=== PATIENT | female | born 1955 | race Caucasian/White ===

== ENCOUNTER 2018-02-03 19:13 | Inpatient (IN) | payer OTHER ==
[~2018-02-03 19:13] MED LIST: ISOVUE-370 76%-LOCM 1 ML ONE
[2018-02-03 19:44] LABS: #Basophils 0.1 thou/uL (0.0-0.2); #Eosinphils 0.4 thou/uL (0.0-0.7); #Lymphocytes 3.3 thou/uL (1.20-3.40); #Monocytes 0.9 thou/uL (0.11-0.59); #Neutrophils 10.7 thou/uL (1.40-6.50); %Basophils 0.6 % (0.0-1.0); %Eosinophils 2.4 % (0.0-10.0); %Lymphocytes 21.6 % (21.0-51.0); %Monocytes 5.8 % (0.0-10.0); %Neutrophils 69.5 % (42.0-75.0); Hemoglobin 15.6 g/dL (12.0-16.0); Mean Corpuscular Hemoglobin 32.3 pg (27.0-31.0); Mean Corpuscular Volume 94.9 fL (78.0-98.0); Mean Platelet Volume 6.6 fL (7.4-10.4); Platelet Count 291 thou/uL (130-400); RBC Distribution Width 11.9 % (11.5-14.5); Red Blood Cell (RBC) Count 4.82 mill/uL (4.20-5.40); White Blood Cell (WBC) Count 15.3 thou/uL (4.8-10.8)
[2018-02-03] MEDS ORDERED: Ondansetron ODT 4 MG TAB ONE (19:47)
[2018-02-03] MEDS ORDERED: Ketorolac Tromethamine 30 MG/ML VIAL ONE (19:47)
[2018-02-03] MEDS ORDERED: Dicyclomine 20 MG TAB ONE (19:47)
[2018-02-03 19:50] LABS: Bilirubin Negative (Negative); Blood, Urine Large (Negative); Clarity CLOUDY (Clear); Glucose, Urine (Dipstick) Negative (Negative); Leukocyte Trace (Negative); Nitrite Negative (Negative); Protein, Urine (Dipstick) Trace mg/dL (Neg-Trace); Urobilinogen 0.2 mg/dL (0.2-1.0)
[2018-02-03 19:52] LABS: Bacteria/HPF None Seen HPF (None Seen); Pathc Cast-AUWi Flag 1.16 (0-2.49); RBC/HPF 21-50 HPF (0-3); WBC/HPF 21-50 HPF (0-3)
[2018-02-03 20:03] LABS: ALT (SGPT) 14 U/L (8-55); AST (SGOT) 17 U/L (5-34); Albumin 4.3 g/dL (3.4-4.8); Alkaline Phosphatase 102 U/L (40-150); Anion Gap 15 mmol/L (10-20); BUN (Urea Nitrogen) 19 mg/dL (9.8-20.1); Bilirubin, Total 0.3 mg/dL (0.2-1.2); Calc. Creatinine Clearance 0 mL/min (70-130); Calcium 9.8 mg/dL (7.8-10.44); Carbon Dioxide 23 mmol/L (23-31); Chloride 105 mmol/L (98-107); Estimated GFR-MDRD 54; Globulin 3.1 g/dL (2.4-3.5); Glucose 151 mg/dL (80-115); Potassium 3.4 mmol/L (3.5-5.1); Protein, Total 7.4 g/dL (6.0-8.3); Sodium 140 mmol/L (136-145)
[2018-02-03 20:04] LABS: Crystals/HPF 1+ CA OXALATE HPF (Negative); Hyaline Casts/LPF NONE SEEN LPF (0-3 Hyaline)
--- NOTE | 2018-02-03 20:58 | CT ---
CT OF THE ABDOMEN AND PELVIS WITH CONTRAST: 02/03/18 COMPARISON: 12/02/16. HISTORY: Low back pain and lower abdominal pain for two hours. This pain is crampy in nature and extends to he r lower left back. TECHNIQUE: Multiple contiguous axial images were obtained in a CT of the abdomen and pelvis with contrast. Coron al reformats were performed. FINDINGS: The liver, gallbladder, kidneys, adrenal glands, spleen, and pancreas are unremarkable. No free air, free fluid, or stranding changes are seen in the abdomen or pelvis. The patient is status post hyster ectomy. The colon is decompressed. There are a few minimally enlarged loops of small bowel containing a feces sign in the pelvis measuring up to 2.1 cm in diameter. There is no transition point from the se minimally enlarged loops of bowel to more decompressed bowel loops. No abdominal or pelvic lymphad enopathy are seen. Atherosclerotic calcifications are seen in the aorta. Degenerative changes are seen in the spine. The visualized inferior thorax and abdominal wall soft ti ssues are unremarkable. IMPRESSION: There is possibly mild enlargement of a few small bowel loops in the pelvis with a small bowel feces sign. This could be secondary to an ileus or partial small bowel obstruction. POS: MARIEL
[2018-02-03] MEDS ORDERED: cefTRIAXone\\ROCEPHIN 2 GM VIAL ONE (21:30)
[2018-02-03] MEDS ORDERED: Ondansetron HCl/PF 4 MG/2 ML Vial IVP PRN (23:02)
[2018-02-03] MEDS ORDERED: Ondansetron ODT 4 MG TAB SL PRN (23:02)
[2018-02-03] MEDS ORDERED: Acetaminophen 325 MG TAB PO PRN (23:02)
[2018-02-04] MEDS: Sodium Chloride 0.9% 1,000 ML IV SCH ×2 (01:02→09:46)
[2018-02-04 04:03] VITALS: BMI 22.9
[2018-02-04] MEDS ORDERED: Sodium Chloride 0.9% 1,000 ML IV SCH (10:15)
[2018-02-04] MEDS ORDERED: Ondansetron HCl/PF 4 MG/2 ML Vial IVP PRN (10:16)
--- NOTE | 2018-02-04 11:28 | RAD ---
SMALL BOWEL FOLLOW THROUGH EXAM: CLINICAL HISTORY: Small bowel obstruction. FINDINGS: Radiopaque contrast is administered with subsequent radiographic imaging. Imaging performed for 30 m inutes. By 30 minutes of imaging, there is contrast opacification of the colon. The small bowel is contrast-opacified and does not reveal pathologic dilatation. Mild ectasia does involve proximal sma ll bowel. There is mild to moderate retained fecal material throughout the colon. IMPRESSION: Contrast traverses the small bowel into the colon by 30 minutes of imaging. There is no radiographic evidence of high-grade bowel obstruction. POS: MARIEL
[2018-02-04] MEDS ORDERED: PROVENTIL INHALER 6.7 G (200 INHALATIONS) INH PRN ×2 (11:46)
[2018-02-04 12:00] VITALS: BP 137/72; TEMP 98.3
[2018-02-04] MEDS ORDERED: Acetaminophen 1,000 MG in Premix Bag 1 BAG IVPB SCH (12:00)
[2018-02-04] MEDS ORDERED: GASTROGRAFIN 30 ML BOT ONE (12:58)
[2018-02-04] MEDS ORDERED: MD-Gastroview 120 ML BOT ONE (12:58)
[2018-02-04] MEDS ORDERED: Ketorolac Tromethamine 30 MG/ML VIAL IVP SCH (16:00)
--- NOTE | 2018-02-04 16:53 | HP ---
HISTORY OF PRESENT ILLNESS: A 62-year-old female who developed onset of pain yesterday, nausea and v omiting. Last bowel movement was 2 days ago, last flatus two days ago. She presented to the emergen cy room and was evaluated, had a CAT scan of the abdomen and pelvis demonstrating some dilated loops of small bowel proximally, read as possibly mild enlargement of few small bowel loops in the pelvis w ith small bowel feces sign that could be secondary to ileus or bowel obstruction. The patient's CAT scan of the abdomen and pelvis otherwise unremarkable. I was called early this morning stating that she had a bowel obstruction, but did not have an NG tube if she does not have any more nausea or vomi ting, but felt she should be observed for her dehydration. White count 15, hemoglobin 15. Basic met abolic profile normal. I know the patient from the past when I saw her for suspected biliary disease, but it was determined that she did not need an operation if she did not have any significant biliary disease and she was di scharged home without subsequent symptoms. ALLERGIES: None. TOBACCO: One half pack per day. ALCOHOL: Occasional wine. PAST SURGICAL HISTORY: Total hysterectomy, bilateral salpingo-oophorectomy in her 20s for endometrio sis. PAST MEDICAL HISTORY: Noncontributory. REVIEW OF SYSTEMS: Noncontributory. FAMILY HISTORY: Noncontributory. PHYSICAL EXAMINATION: VITAL SIGNS: 5 feet 5 inches, 138 pounds, 23 BMI, 98.3, 84, 137/72. LUNGS: Clear to auscultation. CARDIAC: Regular rate and rhythm without murmur or gallop. ABDOMEN: Soft, nontender, no masses. EXTREMITIES: Unremarkable. LABORATORIES: As noted above. CAT scan as noted above. ASSESSMENT AND PLAN: The patient was admitted overnight and she underwent a small bowel follow throu gh with small bowel contrast, transitioned into the colon within 30 minutes. She has had multiple nicky wel movements. She has tolerated full liquids. By the time I had seen her, she he wants to go home. At this point, it is more likely she had a gastroenteritis since she is being discharged home. Cristy drake did have a small bowel feces sign, which could be consistent with constipation or small bowel stasi s, but she tolerated diet. Bowel function is good and she will be discharged home. Instruction is t o take MiraLax daily.
[2018-02-05] MEDS ORDERED: Multivit, Therapeutic 1 TAB PO SCH (09:00)
== END 2018-02-04 16:00 | disposition home or self-care (01) | DRG 392 ==
LOC: ERS 19:13 → SURG B 21:45
PROVIDERS: ADMIT Specialist; ATTEND Specialist
DX: K52.9 Noninfective gastroenteritis and colitis, unspecified (principal); K59.00 Constipation, unspecified; F17.210 Nicotine dependence, cigarettes, uncomplicated
CPT/HCPCS: 74177; 74250; 80053; 81003; 81015; 85025; 87086; 96361; 96365; 96375; J0131; J0696; J1885; J2405; Q0162

== ENCOUNTER 2019-12-11 15:12 | Inpatient (IN) | payer MEDICARE ==
[~2019-12-11 15:12] MED LIST changes: +Amiodarone 150 MG/3 ML VIAL ONE; -ISOVUE-370 76%-LOCM 1 ML ONE; +Iopamidol 370 76% 100 ML VIAL ONE; +Iopamidol 370 76% 50 ML VIAL FS ONE; +Magnesium 5 GM/10 ML Abboject SYRINGE ONE
[2019-12-11] MEDS ORDERED: Heparin 10,000 UNITS/1 ML VIAL ONE (15:17)
[2019-12-11] MEDS ORDERED: Magnesium 2 GM/50 ML BAG (IN WATER) ONE (15:21)
[2019-12-11] MEDS ORDERED: Nitroglycerin 100MG/250ML BOT 0 ML ONE (15:21)
[2019-12-11] MEDS ORDERED: Heparin 1,000 UNITS/ML VIAL ONE (15:25)
[2019-12-11] MEDS ORDERED: Amiodarone 150 MG, Admixture Fee 1 EACH in Dextrose 5% in Water 100 ML IVPB SCH (15:30)
[2019-12-11] MEDS ORDERED: Amiodarone 450 MG, Admixture Fee 1 EACH in Dextrose 5% in Water 250 ML IVPB SCH (15:30)
[2019-12-11] MEDS ORDERED: DOPamine 400 MG/D5W 250 ML 250 ML ONE (16:02)
[2019-12-11] MEDS ORDERED: Ondansetron PF 4 MG/2 ML Vial ONE ×2 (16:19→16:30)
[2019-12-11] MEDS ORDERED: Clopidogrel Bisulfate 300 MG TAB ONE ×2 (16:21→17:38)
[2019-12-11] MEDS ORDERED: Aggrastat 12.5 MG/250 ML 250 ML ONE (16:32)
[2019-12-11] MEDS ORDERED: Nitroglycerin 0.4 MG TAB (25 Tab Bottle) SL PRN (17:12)
[2019-12-11] MEDS ORDERED: Adenosine 6 MG/2 ML VIAL ONE (17:13)
[2019-12-11] MEDS ORDERED: Aggrastat 12.5 MG/250 ML 250 ML IVPB SCH ×2 (17:15)
[2019-12-11 17:23] LABS: #Basophils 0.1 thou/uL (0.0-0.2); #Eosinphils 0.1 thou/uL (0.0-0.7); #Monocytes 0.7 thou/uL (0.11-0.59); #Neutrophils 9.3 thou/uL (1.40-6.50); %Basophils 0.6 % (0.0-1.0); %Eosinophils 0.7 % (0.0-10.0); %Lymphocytes 16.2 % (21.0-51.0); %Neutrophils 76.6 % (42.0-75.0); Hemoglobin 13.8 g/dL (12.0-16.0); Mean Corpuscular HGB CONC 32.4 g/dL (32.0-36.0); Mean Corpuscular Hemoglobin 31.7 pg (27.0-31.0); Mean Corpuscular Volume 97.8 fL (78.0-98.0); Mean Platelet Volume 7.1 fL (7.4-10.4); Platelet Count 252 thou/uL (130-400); RBC Distribution Width 12.5 % (11.5-14.5); Red Blood Cell (RBC) Count 4.36 mill/uL (4.20-5.40); White Blood Cell (WBC) Count 12.1 thou/uL (4.8-10.8)
[2019-12-11] MEDS ORDERED: DOPamine 400 MG/D5W 250 ML 250 ML IVPB SCH (17:45)
[2019-12-11] MEDS ORDERED: Amiodarone 450 MG in Dextrose 5% in Water 250 ML IVPB SCH (17:45)
[2019-12-11] MEDS ORDERED: Aspirin Chewable 81 MG TAB PO SCH (17:45)
[2019-12-11 18:05] LABS: ALT (SGPT) 14 U/L (8-55); AST (SGOT) 35 U/L (5-34); Albumin 3.6 g/dL (3.4-4.8); Alkaline Phosphatase 70 U/L (40-110); Anion Gap 13 mmol/L (10-20); BUN (Urea Nitrogen) 11 mg/dL (9.8-20.1); Bilirubin, Total 0.2 mg/dL (0.2-1.2); Calc. Creatinine Clearance 0 mL/min (70-130); Calcium 8.5 mg/dL (7.8-10.44); Carbon Dioxide 21 mmol/L (23-31); Chloride 111 mmol/L (98-107); Estimated GFR-MDRD 76; Globulin 2.2 g/dL (2.4-3.5); Glucose 123 mg/dL (80-115); Potassium 3.7 mmol/L (3.5-5.1); Protein, Total 5.8 g/dL (6.0-8.3); Sodium 141 mmol/L (136-145)
[2019-12-11 18:09] LABS: CKMB 23.6 ng/mL (0-6.6)
[2019-12-11 18:10] LABS: #Basophils 0.1 thou/uL (0.0-0.2); #Lymphocytes 1.5 thou/uL (1.20-3.40); #Neutrophils 13.5 thou/uL (1.40-6.50); %Basophils 0.5 % (0.0-1.0); %Eosinophils 0.3 % (0.0-10.0); %Lymphocytes 9.1 % (21.0-51.0); %Neutrophils 84.2 % (42.0-75.0); Hemoglobin 13.1 g/dL (12.0-16.0); Mean Corpuscular HGB CONC 32.7 g/dL (32.0-36.0); Mean Corpuscular Hemoglobin 31.8 pg (27.0-31.0); Mean Corpuscular Volume 97.1 fL (78.0-98.0); Mean Platelet Volume 6.7 fL (7.4-10.4); Platelet Count 254 thou/uL (130-400); RBC Distribution Width 12.4 % (11.5-14.5); Red Blood Cell (RBC) Count 4.12 mill/uL (4.20-5.40); White Blood Cell (WBC) Count 16.1 thou/uL (4.8-10.8)
[2019-12-11] MEDS: Sodium Chloride 0.9% 1,000 ML IV SCH ×2 (18:27→22:06)
--- NOTE | 2019-12-11 18:52 | RAD ---
CHEST ONE VIEW: 12/11/19 HISTORY: Post interventional cardiology evaluation. COMPARISON: None. FINDINGS: The lungs are clear. No pneumothorax or effusion. The cardiac silhouette and mediastinal contours are within normal limits. No acute osseous abnormality. IMPRESSION: No acute intrathoracic abnormality. POS: HOME
[2019-12-11 18:58] LABS: Troponin I 78.925 ng/mL (< 0.028)
--- NOTE | 2019-12-11 19:38 | HP ---
INDICATION FOR ADMISSION: Acute inferior myocardial infarction, ST-segment elevation [place]. HISTORY OF PRESENT ILLNESS: This is a very unfortunate 64-year-old female started developing chest pain around 9 o'clock this morning. She denied any previous cardiac history or chest pain, but does have a history of COPD and asthma, but did not think she was having any significant problems. The pain was kind of wax and wane during the morning and then started to persist and she presented to the emergency room and was found to be having an acute inferior myocardial infarction with ST-segment elevations. While in the emergency room, she had several episodes of ventricular tachycardia and ventricular fibrillation requiring an electrocardioversion back to her sinus rhythm. She continued to have some chest discomfort at that time, which somehow was due to the shocks, I am certain, then due to the emergency of the situation, she was advised to undergo emergent cardiac catheterization and was taken emergently to the cardiac medical lab director. PAST MEDICAL HISTORY: Significant for COPD and asthma. She has had hysterectomy. SOCIAL HISTORY: She is . She has three children, who are alive and well. She continues to smoke. She smokes a pack a day, smokes for many years. She has occasional alcohol use. FAMILY HISTORY: Noncontributory at this time. ALLERGIES: NONE. MEDICATIONS: Prior to admission, unknown. She has been followed by the [facility] and Family Practice physicians. We will try to obtain her previous medications. REVIEW OF SYSTEMS: She has not had any significant complaints on review of systems, except that was noted in the history of present illness with acute inferior myocardial infarction. Further review of systems can be obtained later. PHYSICAL EXAMINATION: GENERAL: Reveals a middle-aged female. VITAL SIGNS: Blood pressure was 125/82, heart rate was 109 in the emergency room. HEENT: Unremarkable. I cannot hear carotids, however, there is significant reservations from the patient would not allow us still enough to listen to the carotids very clearly and we will need to re-evaluate. CHEST: Actually was clear to auscultation anteriorly. Decreased breath sounds posteriorly. CARDIOVASCULAR: Reveals a tachycardia, otherwise appears to be regular. I do not hear any significant bruits at this time or murmurs. ABDOMEN: Soft, flat, and nontender. EXTREMITIES: Showed no clubbing or cyanosis. Unable to palpate pedal pulses at this time. NEUROLOGIC: The patient appears to be fully intact. There were no gross focal deficits noted. LABORATORY DATA: Not available at the time of the cardiac catheterization. The only lab that we did obtain thus far after her being in the lab was a troponin I of 1.09 and 1.085. We do not have any other significant laboratory data at this time. The patient was taken emergently to the cardiac medical lab director, where she underwent procedure emergently. She was found to have severe 3-vessel coronary artery disease with 80% left anterior descending artery stenosis, 90% left circumflex just prior to the takeoff of large obtuse marginal branch. The obtuse marginal branch also with approximately 50% stenosis. The left anterior descending artery had diffuse plaque formation in the proximal area and prior to just after the left main with a 50% stenosis of the left anterior descending artery, but there is also a high takeoff of a small diagonal branch which is about 80% to 90% stenosis also, but too small for intervention. The right coronary was found to be 100% occluded with thrombus formation. The patient had been given 5000 units of heparin in the emergency room. ACT was obtained, was found to be less than 200. She was given additional 2000 units of heparin. We then placed a wire down the distal right coronary artery. The patient did have some flow down the vessel. It was noted that she had significant clot burden in the mid right coronary artery. We attempted to pass after a thrombectomy catheter, unable to do so and then using a 2.5 x 20 mm balloon, we were able to cross the stenotic area in the mid right coronary artery and inflations were performed gently and then and the patient had no reflow predominantly in the distal right coronary and appeared the thrombus had moved distally, but she still continued to have some thrombus in the mid vessel. We were able to at least balloon this. We then again used a thrombectomy catheter all way down to the distal right coronary artery in the posterolateral branch and then we were able to aspirate thrombus and even in the mid section there was some thrombus removed. There was what appeared to be still some residual thrombus in the mid section with significant stenosis. We then placed all the way back to almost the takeoff them from the aorta. The right coronary artery had some plaque formation and 50% stenosis or more prior to a subtotal stenosis in the mid section. We then placed a 3.0 x 32 mm nondrug coated Rebel stent. This is deployed, inflated at a maximum inflation up to 3.0 mm in the vessel. We then placed a second stent more proximal to this to cover the entirety of the stenotic areas. This was a 3.0 x 20 mm non drug coated stent, which is again a Rebel stent and this was again deployed and using max inflation up to 3.0 mm. We then reinflated to give an intraluminal of 3.1 mm in the vessel. This same balloon was then passed down to the distal, the proximal to the previous stent and was inflated to give an intraluminal of 3.1 mm in the vessel. She then had some evidence of no reflow and then to slow flow down the vessel. She was then given 50 mcg of adenosine and had much better flow down the vessel. She also had hypotension after we originally started the procedure and was started on a dopamine infusion. The pressure then stabilized and the patient had no further ventricular tachycardia or VFib once the right vessel had been opened, but did have hypotension but she did remain stable. She was given 600 mg of Plavix after the stent was placed. Unfortunately, she then had nausea and vomiting and then threw this up and was advised to take another 300 mg . Also during the procedure, I placed a central line into the right femoral vein for IV access. During the procedure, all the catheters were sewn into place and the patient was taken to the intensive care unit. In the emergency room, she was given a bolus of IV amiodarone. She was also given 2 g of magnesium and was given 5000 units of heparin, was given aspirin. No nitrates were given due to the right coronary artery inferior myocardial infarction. Job ID: [id number] [facility]ITALAndrew
[2019-12-11] MEDS: Atorvastatin Calcium 40 MG TAB PO SCH (20:12)
[2019-12-11] MEDS ORDERED: Atorvastatin Calcium 40 MG TAB PO SCH (21:00)
[2019-12-11] MEDS ORDERED: Metoprolol Tartrate 25 MG TAB PO SCH (21:00)
[2019-12-11 21:47] LABS: Troponin I 125.756 ng/mL (< 0.028)
[2019-12-11] MEDS: Acetaminophen/Codeine 30-300mg Tablet PO PRN (21:53)
[2019-12-12] MEDS: Metoprolol Tartrate 25 MG TAB PO SCH ×3 (00:25→20:03)
[2019-12-12 00:44] LABS: #Lymphocytes 1.6 thou/uL (1.20-3.40); #Monocytes 1.2 thou/uL (0.11-0.59); #Neutrophils 11.7 thou/uL (1.40-6.50); %Basophils 0.2 % (0.0-1.0); %Eosinophils 0.1 % (0.0-10.0); %Monocytes 7.9 % (0.0-10.0); %Neutrophils 80.7 % (42.0-75.0); Hemoglobin 12.5 g/dL (12.0-16.0); Mean Corpuscular Hemoglobin 31.9 pg (27.0-31.0); Mean Corpuscular Volume 96.6 fL (78.0-98.0); Mean Platelet Volume 6.6 fL (7.4-10.4); Platelet Count 245 thou/uL (130-400); RBC Distribution Width 12.4 % (11.5-14.5); Red Blood Cell (RBC) Count 3.93 mill/uL (4.20-5.40); White Blood Cell (WBC) Count 14.5 thou/uL (4.8-10.8)
[2019-12-12 01:26] LABS: Critical Call Chem Troponin I RESULT DECREASING; Troponin I 114.008 ng/mL (< 0.028)
[2019-12-12] MEDS: Acetaminophen/Codeine 30-300mg Tablet PO PRN (02:34)
[2019-12-12 03:55] VITALS: BMI 21.2
[2019-12-12] MEDS ORDERED: Ondansetron PF 4 MG/2 ML Vial SLOW IVP SCH (04:15)
[2019-12-12] MEDS: Morphine 2 MG/ML SYRINGE SLOW IVP PRN ×4 (04:51→16:25)
[2019-12-12 05:12] LABS: #Lymphocytes 2.3 thou/uL (1.20-3.40); #Monocytes 1.4 thou/uL (0.11-0.59); #Neutrophils 11.3 thou/uL (1.40-6.50); %Basophils 0.2 % (0.0-1.0); %Eosinophils 0.3 % (0.0-10.0); %Lymphocytes 15.5 % (21.0-51.0); %Monocytes 9.4 % (0.0-10.0); %Neutrophils 74.7 % (42.0-75.0); Hemoglobin 12.6 g/dL (12.0-16.0); Mean Corpuscular HGB CONC 33.1 g/dL (32.0-36.0); Mean Corpuscular Hemoglobin 32.2 pg (27.0-31.0); Mean Corpuscular Volume 97.4 fL (78.0-98.0); Mean Platelet Volume 7.1 fL (7.4-10.4); Platelet Count 263 thou/uL (130-400); RBC Distribution Width 12.5 % (11.5-14.5); White Blood Cell (WBC) Count 15.1 thou/uL (4.8-10.8)
[2019-12-12 05:34] LABS: ALT (SGPT) 57 U/L (8-55); AST (SGOT) 359 U/L (5-34); Albumin 3.6 g/dL (3.4-4.8); Alkaline Phosphatase 66 U/L (40-110); Anion Gap 11 mmol/L (10-20); BUN (Urea Nitrogen) 7 mg/dL (9.8-20.1); Bilirubin, Total 0.3 mg/dL (0.2-1.2); Calc. Creatinine Clearance 72 mL/min (70-130); Calcium 7.7 mg/dL (7.8-10.44); Carbon Dioxide 20 mmol/L (23-31); Cardiac Risk 2.6 (Less than 4.5); Chloride 113 mmol/L (98-107); Cholesterol 134 mg/dl (< 200 Desired); Estimated GFR-MDRD 83; Globulin 2.5 g/dL (2.4-3.5); Glucose 129 mg/dL (80-115); HDL Cholesterol 52 mg/dL (>60 Neg Risk); LDL Cholesterol, Calculated 74 mg/dL; Potassium 3.7 mmol/L (3.5-5.1); Protein, Total 6.1 g/dL (6.0-8.3); Sodium 140 mmol/L (136-145); Triglycerides 42 mg/dL (Less than 150)
[2019-12-12] MEDS: Aspirin Chewable 81 MG TAB PO SCH (08:13)
[2019-12-12] MEDS: Clopidogrel Bisulfate 75 MG TAB PO SCH (08:14)
[2019-12-12] MEDS: Lisinopril 2.5 MG TAB PO SCH (08:14)
[2019-12-12] MEDS: Norepinephrine 8 MG/0.9% NS 250 ML IVPB SCH (08:14)
[2019-12-12] MEDS ORDERED: Aggrastat 12.5 MG/250 ML 250 ML IVPB SCH (08:50)
--- NOTE | 2019-12-12 08:58 | CON ---
DATE OF CONSULTATION: HISTORY OF PRESENT ILLNESS: This is a 64-year-old female, who was in good health until yesterday morning when she began developing chest pain. It became rather persistent through the day and she finally presented to the emergency room mid afternoon with an acute inferior myocardial infarction by EKG. She underwent cardiac catheterization, which ultimately resulted in 2 stents being placed in an occluded right coronary artery with significant LAD and obtuse marginal stenosis as well being present. She did have a requirement for multiple electric cardioversions prior to arriving in the open hearth laborer for either ventricular tachycardia or VFib. PAST MEDICAL HISTORY: Negative for hypertension, elevated lipid levels. She does have diagnoses of asthma and COPD. PAST SURGICAL HISTORY: Includes hysterectomy. SOCIAL HISTORY: She is . 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 She drinks socially, but not daily. She does have children x3. HOME MEDICATIONS: Include sertraline, Ventolin inhaler, and albuterol inhaler. She has received Plavix and aspirin as well as being started on atorvastatin and low-dose lisinopril has been ordered, but I do not believe it has been given yet because she is still on a dopamine infusion. PHYSICAL EXAMINATION: GENERAL: She is alert and cooperative lady, in no distress. Dopamine 13 mcg/kg / VITAL SIGNS: Her heart rate is 101, her blood pressure is 105. NECK: No carotid bruits. LUNGS: Clear to auscultation anteriorly. CARDIAC: Tachycardia. No murmurs. ABDOMEN: Scaphoid, nontender. EXTREMITIES: She has sheath in the right groin. Palpable pedal pulses. No peripheral edema. LABORATORY DATA: Of note, her troponin was elevated to 125 post catheterization. CPK-MB at the time of a troponin of 1 was 24. ASSESSMENT AND PLAN: At this time, she will need to recover from her acute infarction. She has had a [id number] stent placed, so we will probably need a month of Plavix therapy prior to considering coronary artery bypass grafting to the LAD, OM, and possibly right coronary system. Echo is pending to assess the extent of damage involving the inferior wall. Job ID: [id number] MTDD
[2019-12-12] MEDS ORDERED: Lisinopril 2.5 MG TAB PO SCH (09:00)
[2019-12-12] MEDS ORDERED: Sodium Chloride 0.9% 250 ML 250 ML IVPB SCH ×3 (09:00→17:15)
[2019-12-12] MEDS ORDERED: Clopidogrel Bisulfate 75 MG TAB PO SCH (09:00)
[2019-12-12] MEDS ORDERED: Prevnar 13-Val Conj/PF 0.5 ML SYRINGE IM ONE (09:00)
[2019-12-12] MEDS: Sodium Chloride 0.9% 1,000 ML IV SCH ×3 (09:01→20:19)
--- NOTE | 2019-12-12 12:05 | PDOC.CPN ---
- Subjective Date: 12/12/19 Time: 08:30 Interval history: The pt seen and examined. No overnight events. No cardiac complaints, except cont. nausea - Objective Allergies/Adverse Reactions: Allergies Allergy/AdvReac Type Severity Reaction Status Date / Time No Known Allergies Allergy Verified 10/19/19 21:38 Visit Medications: Current Medications Acetaminophen/Codeine Phosphate (Tylenol #3) 2 tab PO Q4H PRN PRN Reason: Moderate Pain (4-6) Last Admin: 12/12/19 02:34 Dose: 2 tab Aspirin (Aspirin Chewable) 81 mg PO DAILY [facility] Last Admin: 12/12/19 08:13 Dose: 81 mg Atorvastatin Calcium (Lipitor) 40 mg PO HS [facility] Last Admin: 12/11/19 20:12 Dose: 40 mg Clopidogrel Bisulfate (Plavix) 75 mg PO DAILY [facility] Last Admin: 12/12/19 08:14 Dose: 75 mg Sodium Chloride (Normal Saline 0.9%) 1,000 mls @ 100 mls/hr IV .Q10H [facility] Last Admin: 12/12/19 09:01 Dose: 1,000 mls Amiodarone HCl 450 mg/ (Dextrose/Water) 259 mls @ 0 mls/hr IVPB INF [facility]; Protocol Last Admin: 12/11/19 22:03 Dose: 259 mls Dopamine HCl/Dextrose (Dopamine 400 Mg/D5w 250 Ml) 250 mls @ 0 mls/hr IVPB INF [facility]; Protocol Norepinephrine Bitartrate (Levophed) 250 mls @ 0 mls/hr IVPB INF [facility]; Protocol Last Admin: 12/12/19 08:14 Dose: 250 mls Lisinopril (Zestril) 2.5 mg PO DAILY [facility] Last Admin: 12/12/19 08:14 Dose: Not Given Metoclopramide HCl (Reglan) 10 mg IVP Q6H PRN PRN Reason: Nausea/Vomiting Metoprolol Tartrate (Lopressor) 12.5 mg PO BID [facility] Last Admin: 12/12/19 08:14 Dose: Not Given Morphine Sulfate (Morphine) 2 mg SLOW IVP Q4H PRN PRN Reason: Moderate Chest Pain (4-6) Last Admin: 12/12/19 09:01 Dose: 2 mg Nitroglycerin (Nitrostat) 0.4 mg SL Q5MIN PRN PRN Reason: Chest Pain Sodium Chloride (Flush - Normal Saline) 10 ml IVF Q12HR [facility] Last Admin: 12/12/19 08:15 Dose: 10 ml Sodium Chloride (Flush - Normal Saline) 10 ml IVF PRN PRN PRN Reason: Saline Flush Vital Signs & Weight: Vital Signs Temp Pulse Ox 12/12/19 07:45 100 12/12/19 07:00 98.3 F 12/12/19 04:00 98.7 F Admit Weight 2.046 oz Weight 127 lb 13.89 oz - Physical Exam General: alert & oriented x3 HEENT: mucus membranes moist Neck: supple neck Cardiac: regular rate and rhythm, S1/S2 Lungs: clear to auscultation - Labs Result Diagrams: 12/12/19 04:30 12/12/19 04:30 Troponin/CKMB CK-MB (CK-2) 23.6 ng/mL (0-6.6) H* 12/11/19 15:19 Troponin I 114.008 ng/mL (< 0.028) H* 12/11/19 23:59 - Telemetry Sinus rhythms and dysrhythmias: sinus rhythm - Assessment/Plan Assessment/Plan: 1. CAD with s/p LHC and BMS x2 in RCA on 12/11/2019 - On Metoprolol, Lisinopril , ASA, and Plavix, which should be on for at least 1 month before undergoing CABG unless she has further chest pain or EKG changes. 2. s/p V fib - On Amiodarone drip. Will d/c. likely due to the acute [place]. 3. COPD/Asthma 4. Current smoker MAR reviewed * S/p LHC on 12/11/2019 with 80% stenosis in LAD, 90% in Lt Cx, 50% in OM;s/p thrombectomy and BMS x2 in RCA * Plan for CABG by Dr Thrasher pt. seen and eval. by me. the BP has been low today. she has responded to IV fluids and is likely still on the dry side.She complains of a dry mouth and still hac nausea. Continue to taper levophed and remove femoral artery cath. The cuff BP is 15mmHg less than the femoral pressure. RRR,chest clear,no edema.
[2019-12-12] MEDS: Metoclopramide HCl 10 MG/2 ML VIAL IVP PRN ×2 (12:47→22:15)
--- NOTE | 2019-12-12 17:36 | EKG ---
Test Reason : Blood Pressure : / mmHG Vent. Rate : 092 BPM Atrial Rate : 092 BPM P-R Int : 156 ms QRS Dur : 086 ms QT Int : 310 ms P-R-T Axes : 080 -68 083 degrees QTc Int : 383 ms Normal sinus rhythm Left axis deviation ST elevation consider inferior injury or acute infarct * ACUTE [place] * Consider right ventricular involvement in acute inferior infarct Abnormal ECG When compared with ECG of 11-DEC-2019 15:28, (Unconfirmed) Significant changes have occurred Confirmed by DR. Margarita REY MD ([id number]) on 12/12/2019 5:35:26 PM Referred By: JANET Confirmed By:DR. Margarita REY MD
[2019-12-12] MEDS: Atorvastatin Calcium 40 MG TAB PO SCH (20:19)
[2019-12-13] MEDS: Norepinephrine 8 MG/0.9% NS 250 ML IVPB SCH (03:29)
[2019-12-13] MEDS: Sodium Chloride 0.9% 1,000 ML IV SCH ×3 (03:29→19:33)
[2019-12-13] MEDS ORDERED: Albuterol Sulfate 1.25 MG/3 ML NEB NEB SCH (08:45)
[2019-12-13] MEDS: Lisinopril 2.5 MG TAB PO SCH (09:11)
[2019-12-13] MEDS: Metoprolol Tartrate 25 MG TAB PO SCH ×2 (09:12→20:25)
[2019-12-13] MEDS: Aspirin Chewable 81 MG TAB PO SCH (09:12)
[2019-12-13] MEDS: Clopidogrel Bisulfate 75 MG TAB PO SCH (09:13)
[2019-12-13] MEDS ORDERED: Metoclopramide HCl 10 MG TAB PO PRN (10:59)
--- NOTE | 2019-12-13 12:58 | PDOC.CPN ---
- Subjective Date: 12/13/19 Time: 08:30 Interval history: The pt seen and examined. No overnight events. No cardiac complaints. - Objective Allergies/Adverse Reactions: Allergies Allergy/AdvReac Type Severity Reaction Status Date / Time No Known Allergies Allergy Verified 10/19/19 21:38 Visit Medications: Current Medications Acetaminophen/Codeine Phosphate (Tylenol #3) 2 tab PO Q4H PRN PRN Reason: Moderate Pain (4-6) Last Admin: 12/12/19 02:34 Dose: 2 tab Albuterol Sulfate (Albuterol Sulfate) 1.25 mg NEB TID-RT [facility] Aspirin (Aspirin Chewable) 81 mg PO DAILY [facility] Last Admin: 12/13/19 09:12 Dose: 81 mg Atorvastatin Calcium (Lipitor) 40 mg PO HS [facility] Last Admin: 12/12/19 20:19 Dose: 40 mg Clopidogrel Bisulfate (Plavix) 75 mg PO DAILY [facility] Last Admin: 12/13/19 09:13 Dose: 75 mg Sodium Chloride (Normal Saline 0.9%) 1,000 mls @ 125 mls/hr IV .Q8H [facility] Last Admin: 12/13/19 11:46 Dose: 1,000 mls Norepinephrine Bitartrate (Levophed) 250 mls @ 0 mls/hr IVPB INF [facility]; Protocol Last Admin: 12/13/19 03:29 Dose: 250 mls Lisinopril (Zestril) 2.5 mg PO DAILY [facility] Last Admin: 12/13/19 09:11 Dose: Not Given Metoclopramide HCl (Reglan) 10 mg PO Q6H PRN PRN Reason: Nausea/Vomiting Metoprolol Tartrate (Lopressor) 12.5 mg PO BID [facility] Last Admin: 12/13/19 09:12 Dose: Not Given Morphine Sulfate (Morphine) 2 mg SLOW IVP Q4H PRN PRN Reason: Moderate Chest Pain (4-6) Last Admin: 12/12/19 16:25 Dose: 2 mg Nitroglycerin (Nitrostat) 0.4 mg SL Q5MIN PRN PRN Reason: Chest Pain Sodium Chloride (Flush - Normal Saline) 10 ml IVF Q12HR [facility] Last Admin: 12/13/19 11:46 Dose: Not Given Sodium Chloride (Flush - Normal Saline) 10 ml IVF PRN PRN PRN Reason: Saline Flush Vital Signs & Weight: Vital Signs Temp Pulse Pulse Pulse Resp BP BP 12/13/19 11:05 98.5 F 85 18 12/13/19 09:49 89 81 132/72 12/13/19 09:11 83 118/71 12/13/19 09:00 98.0 F 12/13/19 08:00 12/13/19 04:00 98.7 F BP BP Pulse Ox Pulse Ox Pulse Ox 12/13/19 11:05 137/65 97 12/13/19 09:49 114/76 96 94 L 12/13/19 09:11 12/13/19 09:00 12/13/19 08:00 100 12/13/19 04:00 Admit Weight 128 lb Weight 127 lb 13.89 oz - Physical Exam General: alert & oriented x3 HEENT: mucus membranes moist Neck: supple neck Cardiac: regular rate and rhythm, S1/S2 Lungs: decreased breath sounds Neuro: cranial nerve 2-12 intact - Labs Result Diagrams: 12/12/19 04:30 12/12/19 04:30 Troponin/CKMB CK-MB (CK-2) 23.6 ng/mL (0-6.6) H* 12/11/19 15:19 Troponin I 114.008 ng/mL (< 0.028) H* 12/11/19 23:59 - Telemetry Sinus rhythms and dysrhythmias: sinus rhythm - Assessment/Plan Assessment/Plan: 1. CAD with s/p LHC and BMS x2 in RCA on 12/11/2019 - On Metoprolol, Lisinopril , ASA, and Plavix, which should be on for at least 1 month before undergoing CABG unless she has further chest pain or EKG changes. 2. s/p V fib - On Amiodarone drip. Will d/c. likely due to the acute [place]. 3. COPD/Asthma 4. Current smoker - she is willing to start smoking cessation MAR reviewed * S/p LHC on 12/11/2019 with 80% stenosis in LAD, 90% in Lt Cx, 50% in OM;s/p thrombectomy and BMS x2 in RCA * Plan for CABG by Dr Thrasher Pt. seen and eval. by me. I agree with the A/P by the [employer]. She is more stable today than yesterday but was still on levophed to maintain BP> 110 mmHg. until late morning. Chest clear. RRR. No arrythmias.The echo indicates significant inferior hypokinesis. This may be some component of stunning. Hopefully the EF will improve prior to CABG. sarah
[2019-12-13] MEDS: Simethicone Chewable 80 MG TAB PO PRN (17:37)
[2019-12-13] MEDS: Albuterol Sulfate 1.25 MG/3 ML NEB NEB SCH (18:17)
[2019-12-13] MEDS: Atorvastatin Calcium 40 MG TAB PO SCH (20:25)
[2019-12-14] MEDS: Sodium Chloride 0.9% 1,000 ML IV SCH ×3 (03:53→22:12)
[2019-12-14] MEDS: Albuterol Sulfate 1.25 MG/3 ML NEB NEB SCH ×3 (06:42→18:08)
[2019-12-14] MEDS: Clopidogrel Bisulfate 75 MG TAB PO SCH (09:02)
[2019-12-14] MEDS: Aspirin Chewable 81 MG TAB PO SCH (09:02)
[2019-12-14] MEDS: Lisinopril 2.5 MG TAB PO SCH (09:05)
[2019-12-14] MEDS: Metoprolol Tartrate 25 MG TAB PO SCH (09:06)
[2019-12-14] MEDS: Simethicone Chewable 80 MG TAB PO PRN (09:09)
[2019-12-14] MEDS ORDERED: Milk Of Magnesia 30 ML UDCUP PO PRN ×2 (09:42→19:50)
[2019-12-14] MEDS ORDERED: Milk Of Magnesia 30 ML UDCUP PO SCH (20:00)
[2019-12-14] MEDS: Atorvastatin Calcium 40 MG TAB PO SCH (20:41)
[2019-12-15] MEDS: Sodium Chloride 0.9% 1,000 ML IV SCH (06:25)
[2019-12-15] MEDS: Albuterol Sulfate 1.25 MG/3 ML NEB NEB SCH (07:24)
[2019-12-15 09:23] VITALS: TEMP 98.3
[2019-12-15] MEDS: Aspirin Chewable 81 MG TAB PO SCH (09:26)
[2019-12-15] MEDS: Clopidogrel Bisulfate 75 MG TAB PO SCH (09:26)
[2019-12-15 10:57] VITALS: BP 145/72
--- NOTE | 2019-12-16 10:50 | DIS ---
DATE OF ADMISSION: 12/11/2019 DATE OF DISCHARGE: 12/15/2019 DISCHARGE DIAGNOSES: 1. Status post inferior wall myocardial infarction. 2. Status post percutaneous transluminal coronary angioplasty and stent placement in the right coronary artery. 3. Hypertension. 4. Chronic obstructive pulmonary disease. 5. History of tobacco abuse. HISTORY OF PRESENT ILLNESS: This patient is a 64-year-old woman who presented with acute onset of substernal chest pain. The patient was noted to have marked ST elevation on her electrocardiogram. The patient was taken emergently to the cardiac catheterization laboratory. The patient was found to have normal left ventricular ejection fraction of 60%, the LAD had an 80% mid lesion, the left circumflex artery had a 90% OM lesion and a subsequent 50% lesion. There was 100% lesion in the RCA. The patient underwent PTCA and stent placement. She had a 3.0 x 32 mm stent placed and a 3.0 x 20 mm stent into the right coronary artery. The patient did well following surgery. She underwent a Cardiothoracic Surgery consultation. It was recommended that the patient eventually undergo coronary artery bypass graft surgery after she has been on Plavix for a month. The patient had a followup echocardiogram, which revealed mild decreased left ventricular ejection fraction of 40% to 45%. The patient is discharged in stable condition. DISCHARGE MEDICATIONS: 1. Toprol 50 XL, take one tablet daily. 2. Lipitor 40 at bedtime. 3. Plavix 75 daily. 4. Aspirin 81 daily. 5. Toprol 25 XL daily. 6. Lisinopril 2.5 mg daily. Job ID: [id number] MTDD
== END 2019-12-15 11:10 | disposition home or self-care (01) | DRG 248 ==
LOC: ERS 15:12 → CCU 15:33 → CCL 15:35 → CCU 17:44 → 2NO 12-13 10:58
PROVIDERS: ADMIT Internal Medicine Cardiovascular Disease; ATTEND Internal Medicine Cardiovascular Disease
PROC: 02703EZ Dilation of Coronary Artery, One Artery with Two Intraluminal Devices, Percutaneous Approach (ICD-10-PCS; principal; 2019-12-11)
PROC: 4A023N7 Measurement of Cardiac Sampling and Pressure, Left Heart, Percutaneous Approach (ICD-10-PCS; 2019-12-11)
PROC: B2151ZZ Fluoroscopy of Left Heart using Low Osmolar Contrast (ICD-10-PCS; 2019-12-11)
PROC: B2111ZZ Fluoroscopy of Multiple Coronary Arteries using Low Osmolar Contrast (ICD-10-PCS; 2019-12-11)
PROC: 3E033XZ Introduction of Vasopressor into Peripheral Vein, Percutaneous Approach (ICD-10-PCS; 2019-12-11)
DX: I21.19 ST elevation (STEMI) myocardial infarction involving other coronary artery of inferior wall (principal); I49.01 Ventricular fibrillation; I47.2 Ventricular tachycardia; J44.9 Chronic obstructive pulmonary disease, unspecified; I25.10 Atherosclerotic heart disease of native coronary artery without angina pectoris; I95.9 Hypotension, unspecified; F17.210 Nicotine dependence, cigarettes, uncomplicated; I10 Essential (primary) hypertension; Z79.51 Long term (current) use of inhaled steroids; Z90.710 Acquired absence of both cervix and uterus
CPT/HCPCS: 71045; 80053; 80061; 82553; 84484; 85025; 85347; 90471; 90670; 92941; 92973; 92977; 93005; 93010; 93306; 93458; 93798; 96374; 96375; C1725; C1757; C1769; C1876; C1887; G0009; J0153; J0282; J1265; J1644; J2270; J2405; J2765; J3246; J3475; J7050; J7070; Q9967

== ENCOUNTER 2020-01-24 09:15 | Inpatient (IN) | payer MEDICARE, OTHER ==
[2020-01-23 14:51] VITALS: BMI 20.7
[2020-01-24 11:30] LABS: Hemoglobin 13.8 g/dL (12.0-16.0); Mean Corpuscular Hemoglobin 31.3 pg (27.0-31.0); Mean Corpuscular Volume 94.8 fL (78.0-98.0); Mean Platelet Volume 6.9 fL (7.4-10.4); Platelet Count 269 thou/uL (130-400); RBC Distribution Width 12.9 % (11.5-14.5); Red Blood Cell (RBC) Count 4.41 mill/uL (4.20-5.40); White Blood Cell (WBC) Count 8.7 thou/uL (4.8-10.8)
[2020-01-24 13:22] LABS: Anion Gap 10 mmol/L (10-20); BUN (Urea Nitrogen) 20 mg/dL (9.8-20.1); Calc. Creatinine Clearance 58 mL/min (70-130); Calcium 9.8 mg/dL (7.8-10.44); Carbon Dioxide 28 mmol/L (23-31); Chloride 107 mmol/L (98-107); Estimated GFR-MDRD 65; Glucose 98 mg/dL (80-115); Potassium 4.4 mmol/L (3.5-5.1); Sodium 141 mmol/L (136-145)
[2020-01-25 13:15] LABS: SARS-CoV-2 MS2 Positive; SARS-CoV-2 N Gene Negative; SARS-CoV-2 S Gene Negative; SARS-CoV-2 orf1ab Negative
[2020-01-29] MEDS ORDERED: Albumin 5% 500 ML ONE (06:30)
[2020-01-29] MEDS ORDERED: Heparin 10,000 UNITS/1 ML VIAL 30,000 UNITS in Sodium Chloride 0.9% 1,000 ML FS SCH (06:45)
[2020-01-29] MEDS ORDERED: Dexmedetomidine 200 MCG/2 ML VIAL ONE (06:48)
[2020-01-29] MEDS ORDERED: Midazolam HCl 5 mg/5 ml Vial ONE (06:48)
[2020-01-29] MEDS ORDERED: Fentanyl 250 MCG/5 ML VIAL ONE (06:48)
[2020-01-29] MEDS ORDERED: Midazolam HCl 2 mg/2 ml Vial ONE (07:04)
[2020-01-29] MEDS ORDERED: Albuterol Sulfate 1.25 MG/3 ML NEB ONE (07:15)
[2020-01-29] MEDS ORDERED: Insulin Regular 300 UNITS/3 ML VIAL ONE (08:35)
[2020-01-29] MEDS ORDERED: Heparin 30,000 units/30 ml VIAL ONE (09:34)
[2020-01-29] MEDS ORDERED: Sodium Bicarb 50 MEQ/50 ML Abboject 8.4% SYRINGE ONE (09:34)
[2020-01-29] MEDS ORDERED: Norepinephrine 4 MG/4 ML VIAL ONE (09:34)
[2020-01-29] MEDS ORDERED: Glycopyrrolate 0.2 MG/ML 5 ML SYRINGE ONE (09:34)
[2020-01-29] MEDS ORDERED: Lidocaine 2% PF 5 ML VIAL ONE (09:34)
[2020-01-29] MEDS ORDERED: Ondansetron PF 4 MG/2 ML Vial ONE (09:34)
[2020-01-29] MEDS ORDERED: PROPOFOL 200 MG/20 ML VIAL ONE (09:34)
[2020-01-29] MEDS ORDERED: Vecuronium 10 MG VIAL ONE (09:34)
[2020-01-29] MEDS ORDERED: Dexamethasone 20 MG/5 ML VIAL ONE (09:34)
[2020-01-29] MEDS ORDERED: Aminocaproic Acid 5 GM/20 ML VIAL ONE (09:34)
[2020-01-29] MEDS ORDERED: Nitroglycerin 50 MG/250 ML BOT ONE (09:34)
[2020-01-29] MEDS ORDERED: Lidocaine 1% PF 5 ML VIAL ONE (09:34)
[2020-01-29] MEDS ORDERED: Ketorolac Tromethamine 30 MG/ML VIAL ONE ×2 (09:34→13:28)
[2020-01-29] MEDS ORDERED: Magnesium Sulfate 1 GM/2 ML VIAL ONE (09:34)
[2020-01-29] MEDS ORDERED: Cardioplegic Soln 1,000 ML BAG ONE (09:34)
[2020-01-29] MEDS ORDERED: Protamine Sulfate 250 MG/25 ML VIAL ONE (09:34)
[2020-01-29] MEDS ORDERED: Papaverine 60 MG/2 ML VIAL ONE (09:34)
[2020-01-29] MEDS ORDERED: Potassium Chloride 60 MEQ/30 ML VIAL ONE (09:34)
[2020-01-29] MEDS ORDERED: Calcium Chloride 1 GM/10 ML Abboject SYRINGE ONE (09:34)
[2020-01-29] MEDS ORDERED: Heparin 5,000 UNITS/ML VIAL ONE (09:34)
[2020-01-29] MEDS ORDERED: Thrombin 5000 UNITS/5 ML VIAL ONE (09:34)
[2020-01-29 10:53] LABS: Actual Bicarbonate (HCO3a) 19.9 mEq/L (22-28); Base Excess (BEa) -8.5 mEq/L (-2.0 to +3.0); CO2 Tension 55.4 mmHg (35.0-45.0); Calcium, Ionized (arterial) 1.12 mmol/L (1.12-1.30); Carboxyhemoglobin (COHb) 0.2 gm% (0.0-3.0); Hemoglobin (Hb) 10.5 g/dL (12.0-16.0); O2 Tension (PaO2), arterial 125.7 mmHg (> 80.0); Potassium - ABG Lab 3.92 mmol/L (3.70-5.30)
[2020-01-29 10:56] LABS: pH, Arterial 7.17 (7.35-7.45)
[2020-01-29 10:57] LABS: Puncture Site LINE
[2020-01-29] MEDS ORDERED: Bisacodyl 5 MG TAB PO PRN (11:02)
[2020-01-29] MEDS ORDERED: Guaifenesin DM 100-10/5 ML UDCUP PO PRN (11:02)
[2020-01-29] MEDS ORDERED: Promethazine HCl 25 MG/ML VIAL IM PRN (11:02)
[2020-01-29] MEDS ORDERED: Bisacodyl 10 MG SUPP PR PRN (11:02)
[2020-01-29] MEDS ORDERED: niCARdipine 25 MG in Sodium Chloride 0.9% 250 ML 240 ML IVPB PRN (11:02)
[2020-01-29] MEDS ORDERED: HYDROcodone/Acetaminophen 5/325 mg Tablet PO PRN (11:02)
[2020-01-29] MEDS ORDERED: Hetastarch 6% 500 ML 500 ML IVPB PRN (11:02)
[2020-01-29] MEDS ORDERED: Fentanyl 100 MCG/2 ML VIAL SLOW IVP PRN ×2 (11:02)
[2020-01-29] MEDS ORDERED: hydrALAZINE 20 MG/ML VIAL SLOW IVP PRN (11:02)
[2020-01-29] MEDS ORDERED: Nitroglycerin 50 MG/250 ML BOT 250 ML IVPB PRN (11:02)
[2020-01-29] MEDS ORDERED: DOPamine 400 MG/D5W 250 ML 250 ML IVPB PRN (11:02)
[2020-01-29] MEDS ORDERED: Magnesium 2 GM/50 ML 2 GM in Premix Bag 1 BAG IVPB SCH (11:02)
[2020-01-29] MEDS ORDERED: Mag-Al 1200 mg/1200 mg/30 ML UDCUP PO PRN (11:02)
[2020-01-29] MEDS ORDERED: Acetaminophen 325 MG TAB PO PRN (11:02)
[2020-01-29] MEDS ORDERED: Post-Op Insulin Drip Protocol IVPB ONE (11:02)
[2020-01-29] MEDS ORDERED: Dextrose 5% in Water 1,000 ML IV PRN (11:09)
[2020-01-29] MEDS ORDERED: Dextrose 50% Abboject 50 ML SYRINGE SLOW IVP PRN (11:09)
[2020-01-29] MEDS ORDERED: HUMULIN R 100 UNITS in Sodium Chloride 0.9% 100 ML IVPB SCH (11:09)
--- NOTE | 2020-01-29 11:16 | RAD ---
EXAM: CHEST ONE VIEW HISTORY: Post open heart surgery. COMPARISON: 12/11/2019 FINDINGS: There has been interval postsurgical changes related to CABG. Right subclavian central venous cathete r is noted in place with tip overlying the expected location of the cavoatrial junction. Mediastinal drains are seen. Cardiac silhouette and pulmonary vasculature are within normal limits. C alcified biapical pleural thickening is seen. Lungs are otherwise clear. No other interval change. IMPRESSION: Postoperative changes related to interval CABG with lines and tubes in place.
--- NOTE | 2020-01-29 11:17 | OP ---
DATE OF PROCEDURE: 01/29/2020 PREOPERATIVE DIAGNOSIS: Coronary artery disease, status post right coronary stenting. PROCEDURE PERFORMED: Coronary artery bypass graft x2, left internal mammary artery good quality to an LAD 1.5 mm as it became extra-myocardial, saphenous vein good quality to a 2 mm OM #1. [place] ANALYST: Santiago. TRANSFUSION: None. DESCRIPTION OF PROCEDURE: After adequate anesthesia had been obtained, the patient was prepped and draped. Dr. Henderson did an open saphenous vein harvest to the left leg while I had performed a median sternotomy. After opening the sternum, left internal mammary artery was harvested. The right pleura was entered with a sternal saw. After heparinization in distal division of the mammary, it was brought posterior to the thymus gland and the pericardium was incised. Aorta and right atrium were cannulated, and cardiopulmonary bypass begun. Aorta was cross-clamped and after a liter of cold blood cardioplegia, 2 distal anastomosis were completed and cross-clamp removed. Partial occluding clamp was placed, and a single proximal anastomosis was performed on the aortic root and marked with a ring. The patient was then weaned from cardiopulmonary bypass. Cannula was removed. Protamine was given systemically, and the aortic cannulation site was secured with a Prolene. Mediastinal and right pleural drains were placed. At that time, there was a small bit of air in the left pleura and this was opened slightly to allow it to evacuate the air. Following this, the sternum was reapproximated with #7 interrupted wire using vancomycin paste on the sternal edges, platelet-rich blood and platelet-poor plasma on the bone and subcutaneous tissues. Subcutaneous tissue and skin were closed in layers. Job ID: [id number]
[2020-01-29 11:18] LABS: #Basophils 0.1 thou/uL (0.0-0.2); #Eosinphils 0.4 thou/uL (0.0-0.7); #Lymphocytes 2.5 thou/uL (1.20-3.40); #Monocytes 0.9 thou/uL (0.11-0.59); #Neutrophils 13.8 thou/uL (1.40-6.50); %Basophils 0.5 % (0.0-1.0); %Eosinophils 2.5 % (0.0-10.0); Hemoglobin 10.4 g/dL (12.0-16.0); Mean Corpuscular HGB CONC 32.1 g/dL (32.0-36.0); Mean Corpuscular Hemoglobin 31.4 pg (27.0-31.0); Mean Corpuscular Volume 97.8 fL (78.0-98.0); Mean Platelet Volume 6.8 fL (7.4-10.4); Platelet Count 174 thou/uL (130-400); Red Blood Cell (RBC) Count 3.32 mill/uL (4.20-5.40); White Blood Cell (WBC) Count 17.6 thou/uL (4.8-10.8)
[2020-01-29] MEDS: Lactated Ringer's 1,000 ML IV SCH (11:25)
[2020-01-29 11:27] LABS: Anion Gap 8 mmol/L (10-20); BUN (Urea Nitrogen) 11 mg/dL (9.8-20.1); Calc. Creatinine Clearance 73 mL/min (70-130); Carbon Dioxide 22 mmol/L (23-31); Chloride 116 mmol/L (98-107); Estimated GFR-MDRD 85; Glucose 105 mg/dL (80-115); Sodium 142 mmol/L (136-145)
[2020-01-29 11:28] LABS: INR-International Normal Ratio 1.4; PTT 35.8 sec (22.9-36.1); Prothrombin Time 17.4 sec (12.0-14.7)
[2020-01-29] MEDS ORDERED: Sodium Bicarb 50 MEQ/50 ML Abboject 8.4% SYRINGE IVP SCH (11:30)
[2020-01-29] MEDS ORDERED: Norepinephrine 8 MG in Dextrose 5% in Water 242 ML IVPB PRN (12:12)
[2020-01-29] MEDS: Potassium Chloride 20 MEQ/100 ML PREMIX BAG IVPB PRN ×2 (12:33→17:40)
[2020-01-29] MEDS ORDERED: Norepinephrine 8 MG/0.9% NS 8 MG in Premix Bag 1 BAG IVPB PRN (13:00)
[2020-01-29] MEDS: Ketorolac Tromethamine 30 MG/ML VIAL IVP SCH ×2 (13:30→19:37)
[2020-01-29] MEDS: CEFAZOLIN 2 GM in Premix Bag 1 BAG IVPB SCH ×2 (13:37→21:17)
[2020-01-29] MEDS: Insulin Regular 300 UNITS/3 ML VIAL SC PRN ×2 (15:26→20:01)
[2020-01-29 16:44] LABS: Hemoglobin 9.6 g/dL (12.0-16.0)
[2020-01-29 16:57] LABS: Potassium 3.9 mmol/L (3.5-5.1)
[2020-01-29] MEDS ORDERED: Milk Of Magnesia 30 ML UDCUP PO PRN (17:48)
--- NOTE | 2020-01-29 18:27 | EKG ---
Test Reason : PREOP Blood Pressure : / mmHG Vent. Rate : 067 BPM Atrial Rate : 067 BPM P-R Int : 168 ms QRS Dur : 082 ms QT Int : 468 ms P-R-T Axes : 081 -60 -44 degrees QTc Int : 494 ms Normal sinus rhythm Left axis deviation Inferior infarct , age undetermined Abnormal ECG When compared with ECG of 12-DEC-2019 08:11, Significant changes have occurred Confirmed by TRINY REEDER (2) on 01/29/2020 6:27:03 PM Referred By: YASMANY Confirmed By:TRINY REEDER
[2020-01-29] MEDS ORDERED: Famotidine/PF 20 mg/2ml Vial SLOW IVP SCH (21:00)
[2020-01-29] MEDS: Atorvastatin Calcium 40 MG TAB PO SCH (21:18)
[2020-01-29] MEDS: Ondansetron PF 4 MG/2 ML Vial IVP PRN (22:13)
[2020-01-30] MEDS: Ketorolac Tromethamine 30 MG/ML VIAL IVP SCH ×4 (00:07→17:08)
[2020-01-30] MEDS: Lactated Ringer's 1,000 ML IV SCH ×2 (00:08→11:34)
[2020-01-30] MEDS: HYDROcodone/Acetaminophen 5/325 mg Tablet PO PRN ×4 (01:38→22:38)
[2020-01-30 03:34] LABS: #Lymphocytes 1.2 thou/uL (1.20-3.40); #Monocytes 1.1 thou/uL (0.11-0.59); #Neutrophils 10.4 thou/uL (1.40-6.50); %Basophils 0.2 % (0.0-1.0); %Eosinophils 0.1 % (0.0-10.0); %Lymphocytes 9.4 % (21.0-51.0); %Monocytes 8.7 % (0.0-10.0); %Neutrophils 81.6 % (42.0-75.0); Hemoglobin 8.1 g/dL (12.0-16.0); Mean Corpuscular HGB CONC 34.2 g/dL (32.0-36.0); Mean Corpuscular Hemoglobin 32.8 pg (27.0-31.0); Mean Platelet Volume 7.1 fL (7.4-10.4); Platelet Count 119 thou/uL (130-400); Platelet Morphology Comment Appears Decreased; RBC Distribution Width 13.1 % (11.5-14.5); Red Blood Cell (RBC) Count 2.47 mill/uL (4.20-5.40); White Blood Cell (WBC) Count 12.8 thou/uL (4.8-10.8)
[2020-01-30 03:46] LABS: Anion Gap 8 mmol/L (10-20); BUN (Urea Nitrogen) 14 mg/dL (9.8-20.1); Calc. Creatinine Clearance 76 mL/min (70-130); Calcium 7.1 mg/dL (7.8-10.44); Carbon Dioxide 22 mmol/L (23-31); Chloride 113 mmol/L (98-107); Estimated GFR-MDRD 90; Glucose 113 mg/dL (80-115); Potassium 4.3 mmol/L (3.5-5.1); Sodium 139 mmol/L (136-145)
[2020-01-30] MEDS: CEFAZOLIN 2 GM in Premix Bag 1 BAG IVPB SCH (05:12)
[2020-01-30] MEDS: Ondansetron PF 4 MG/2 ML Vial IVP PRN (05:42)
--- NOTE | 2020-01-30 07:59 | RAD ---
XR Chest 1 View Portable HISTORY: Postop open heart surgery COMPARISON: 01/29/2020 FINDINGS: Mild haziness in the lower chest may be due to small pleural effusions. Remainder the exam is otherwise stable
[2020-01-30] MEDS ORDERED: Clopidogrel Bisulfate 75 MG TAB PO SCH (09:00)
[2020-01-30] MEDS: Aspirin Chewable 81 MG TAB PO SCH (09:24)
[2020-01-30] MEDS: Metoprolol Tartrate 25 MG TAB PO SCH ×2 (09:25→21:53)
[2020-01-30] MEDS: Polyethylene Glycol 3350 17 GM Packet PO SCH (09:25)
[2020-01-30] MEDS: Lidocaine 5% Patch TD SCH (09:25)
[2020-01-30] MEDS ORDERED: Guaifenesin DM 100-10/5 ML UDCUP PO PRN (17:29)
[2020-01-30] MEDS ORDERED: Mag-Al 1200 mg/1200 mg/30 ML UDCUP PO PRN (17:29)
[2020-01-30] MEDS ORDERED: Bisacodyl 5 MG TAB PO PRN (17:29)
[2020-01-30] MEDS ORDERED: Mineral Oil ENEMA PR PRN (17:29)
[2020-01-30] MEDS ORDERED: Nitroglycerin 0.4 MG TAB (25 Tab Bottle) SL PRN (17:29)
[2020-01-30] MEDS ORDERED: Bisacodyl 10 MG SUPP PR PRN (17:29)
[2020-01-30] MEDS: Atorvastatin Calcium 40 MG TAB PO SCH (21:53)
[2020-01-30] MEDS: Lidocaine Patch Removal 1 EACH TOP SCH (21:53)
[2020-01-31] MEDS: HYDROcodone/Acetaminophen 5/325 mg Tablet PO PRN ×4 (04:38→20:15)
[2020-01-31 04:44] LABS: Hemoglobin 9.4 g/dL (12.0-16.0); Mean Corpuscular HGB CONC 32.6 g/dL (32.0-36.0); Mean Corpuscular Hemoglobin 31.2 pg (27.0-31.0); Mean Corpuscular Volume 95.7 fL (78.0-98.0); Red Blood Cell (RBC) Count 3.02 mill/uL (4.20-5.40)
[2020-01-31 04:45] LABS: #Basophils 0.1 thou/uL (0.0-0.2); #Eosinphils 0.2 thou/uL (0.0-0.7); #Lymphocytes 2.7 thou/uL (1.20-3.40); #Monocytes 1.4 thou/uL (0.11-0.59); #Neutrophils 8.6 thou/uL (1.40-6.50); %Basophils 0.6 % (0.0-1.0); %Eosinophils 1.7 % (0.0-10.0); %Lymphocytes 20.8 % (21.0-51.0); %Monocytes 10.7 % (0.0-10.0); %Neutrophils 66.3 % (42.0-75.0); Mean Platelet Volume 7.3 fL (7.4-10.4); Platelet Count 126 thou/uL (130-400); RBC Distribution Width 13.7 % (11.5-14.5)
[2020-01-31] MEDS: Metoprolol Tartrate 25 MG TAB PO SCH ×2 (08:02→20:14)
[2020-01-31] MEDS: Potassium Chloride 10 MEQ TAB PO SCH (08:02)
[2020-01-31] MEDS: Furosemide 40 MG TAB PO SCH (08:02)
[2020-01-31] MEDS: Aspirin Chewable 81 MG TAB PO SCH (08:03)
[2020-01-31] MEDS: Lidocaine 5% Patch TD SCH (08:03)
[2020-01-31] MEDS: Polyethylene Glycol 3350 17 GM Packet PO SCH (08:03)
--- NOTE | 2020-01-31 13:59 | PDOC.CPN ---
- Subjective Date: 01/31/20 Time: 08:30 Interval history: The pt seen and examined. No overnight events. No cardiac complaints. - Objective Allergies/Adverse Reactions: Allergies Allergy/AdvReac Type Severity Reaction Status Date / Time No Known Allergies Allergy Verified 01/23/20 14:48 Visit Medications: Current Medications Acetaminophen (Tylenol) 650 mg PO Q6H PRN PRN Reason: Headache/Fever Or Mild Pain Hydrocodone Bitart/Acetaminophen ([place] 5/325) 1 tab PO Q4H PRN PRN Reason: Moderate Pain (4-6) Last Admin: 01/31/20 10:18 Dose: 1 tab Hydrocodone Bitart/Acetaminophen ([place] 5/325) 2 tab PO Q4H PRN PRN Reason: Severe Pain (7-10) Last Admin: 01/29/20 17:58 Dose: 2 tab Al Hydroxide/Mg Hydroxide (Maalox) 30 ml PO Q4H PRN PRN Reason: Indigestion Albuterol/Ipratropium (Duoneb) 3 ml NEB [id number] PRN PRN Reason: SHORTNESS OF BREATH Aspirin (Aspirin Chewable) 81 mg PO DAILY [facility] Last Admin: 01/31/20 08:03 Dose: 81 mg Atorvastatin Calcium (Lipitor) 40 mg PO HS [facility] Last Admin: 01/30/20 21:53 Dose: 40 mg Bisacodyl (Dulcolax) 10 mg PO Q12H PRN PRN Reason: Constipation Bisacodyl (Dulcolax) 10 mg [place] Q12H PRN PRN Reason: Constipation Furosemide (Lasix) 40 mg PO DAILY-AC [facility] Last Admin: 01/31/20 08:02 Dose: 40 mg Guaifenesin/Dextromethorphan (Robitussin Dm) 15 ml PO Q4H PRN PRN Reason: Cough Lidocaine (Lidoderm 5% Patch) 1 patch TD DAILY [facility] Last Admin: 01/31/20 08:03 Dose: 1 patch Magnesium Hydroxide (Milk Of Magnesium) 60 ml PO DAILYPRN PRN PRN Reason: Constipation Metoprolol Tartrate (Lopressor) 6.25 mg PO BID [facility] Last Admin: 01/31/20 08:02 Dose: 6.25 mg Mineral Oil (Fleet Mineral Oil) 133 ml [place] DAILYPRN PRN PRN Reason: Constipation Miscellaneous Medication (Lidocaine Patch Removal) 1 each TOP 2100 [facility] Last Admin: 01/30/20 21:53 Dose: 1 each Nitroglycerin (Nitrostat) 0.4 mg SL Q5MIN PRN PRN Reason: Chest Pain Ondansetron HCl (Zofran) 4 mg IVP Q6H PRN PRN Reason: Nausea/Vomiting Last Admin: 01/30/20 05:42 Dose: 4 mg Pantoprazole Sodium (Protonix) 40 mg PO DAILY [facility] Last Admin: 01/31/20 08:03 Dose: 40 mg Polyethylene Glycol (Miralax) 17 gm PO DAILY [facility] Last Admin: 01/31/20 08:03 Dose: 17 gm Potassium Chloride (Klor-Con 10) 10 meq PO QAM-WM [facility] Last Admin: 01/31/20 08:02 Dose: 10 meq Sodium Chloride (Flush - Normal Saline) 10 ml IVF Q12HR [facility] Last Admin: 01/31/20 08:03 Dose: 10 ml Sodium Chloride (Flush - Normal Saline) 10 ml IVF PRN PRN PRN Reason: Saline Flush Vital Signs & Weight: Vital Signs Temp Pulse Pulse Pulse Resp BP BP 01/31/20 12:32 78 74 116/62 101/57 L 01/31/20 11:00 98.5 F 78 14 01/31/20 09:28 77 75 110/59 L 127/65 01/31/20 07:56 98.1 F 80 16 01/31/20 03:52 99.2 F 72 20 BP BP Pulse Ox Pulse Ox Pulse Ox 01/31/20 12:32 97 94 L 01/31/20 11:00 119/68 94 L 01/31/20 09:28 94 L 96 01/31/20 07:56 122/63 97 01/31/20 03:52 122/65 93 L Weight 138 lb 4.8 oz - Physical Exam General: alert & oriented x3 HEENT: mucus membranes moist Neck: supple neck Cardiac: regular rate and rhythm, S1/S2 Extremities: no edema Musculoskeletal: normal range of motion - Labs Result Diagrams: 01/31/20 04:14 01/30/20 03:05 - Telemetry Sinus rhythms and dysrhythmias: sinus rhythm - Assessment/Plan Assessment/Plan: 1. CAD with hx of BMS x2 in RCA on 12/11/2019 and s/p CABG x 2 on 01/29/2020 with CONNELL-LAD and SVG-OM1 - will start bblocker/AMBIKA/ARB when her VS is more stable; on Statin and ASA, but Plavix is on hold due to still on CT. 2. S/p V fib in 11/2019 - cont. to monitor on tele 3. COPD/asthma - stable with RA 4. Ex-smoker, quit in 11/2019 - she is willing to cont. smoking cessation MAR reviewed Pt. seen and eval. by me. I agree with the A/P by the QUANTITATIVE ASSOCIATE. Chest tubes are still in. Chest clear. RRR. She is stable s/p CABG. gjm
[2020-01-31] MEDS: Atorvastatin Calcium 40 MG TAB PO SCH (20:14)
[2020-01-31] MEDS: Lidocaine Patch Removal 1 EACH TOP SCH (20:16)
[2020-02-01] MEDS: HYDROcodone/Acetaminophen 5/325 mg Tablet PO PRN ×4 (03:33→20:59)
--- NOTE | 2020-02-01 06:55 | PRG ---
DATE OF SERVICE: The patient is afebrile. Blood pressure is 110 to 120, heart rate is 80 to 90, sinus rhythm. Weight remains at about 138 pounds compared with stated weight of about 125 prior to admission. She has no complaints except she has not had a bowel movement since surgery and does have chronic constipation and has been on MiraLAX daily since her surgery. She also has milk of magnesia 60, which is what she requires at home. Her chest incision remains covered and dressing dry and she needs to shower today. Her legs are without edema. Showered today and consider discharge tomorrow if she is doing well. Job ID: [id number]
[2020-02-01] MEDS: Metoprolol Tartrate 25 MG TAB PO SCH ×2 (07:41→20:59)
[2020-02-01] MEDS: Aspirin Chewable 81 MG TAB PO SCH (07:41)
[2020-02-01] MEDS: Polyethylene Glycol 3350 17 GM Packet PO SCH (07:42)
[2020-02-01] MEDS: Potassium Chloride 10 MEQ TAB PO SCH (07:42)
[2020-02-01] MEDS: Lidocaine 5% Patch TD SCH (07:42)
[2020-02-01] MEDS: Furosemide 40 MG TAB PO SCH (07:42)
[2020-02-01] MEDS: Atorvastatin Calcium 40 MG TAB PO SCH (20:59)
[2020-02-01] MEDS: Lidocaine Patch Removal 1 EACH TOP SCH (21:00)
[2020-02-02] MEDS: HYDROcodone/Acetaminophen 5/325 mg Tablet PO PRN ×2 (03:13→08:30)
[2020-02-02 07:22] VITALS: TEMP 98.5
[2020-02-02] MEDS: Polyethylene Glycol 3350 17 GM Packet PO SCH (08:01)
[2020-02-02] MEDS: Potassium Chloride 10 MEQ TAB PO SCH (08:29)
[2020-02-02] MEDS: Lidocaine 5% Patch TD SCH (08:29)
[2020-02-02] MEDS: Furosemide 40 MG TAB PO SCH (08:29)
[2020-02-02] MEDS: Aspirin Chewable 81 MG TAB PO SCH (08:29)
[2020-02-02] MEDS: Metoprolol Tartrate 25 MG TAB PO SCH (08:45)
[2020-02-02 11:13] VITALS: BP 106/62
--- NOTE | 2020-02-03 08:32 | DIS ---
DATE OF ADMISSION: 01/29/2020 DATE OF DISCHARGE: 02/02/2020 A 64-year-old lady who suffered inferior myocardial infarction with stenting about 6 weeks prior, electively admitted for coronary artery bypass grafting to the LAD and OM. Her postoperative course was uneventful, and she will be discharged home on her admitting medicines as well as Lasix 40 mg a day for 5 days and potassium supplement for 5 days. Discharge weight is 135, perhaps slightly less compared with about 125 on admission. Job ID: [id number]
== END 2020-02-02 11:59 | disposition home or self-care (01) | DRG 236 ==
LOC: SURG A 01-29 05:59 → CCU 01-29 08:45 → 2NO 01-30 23:21
PROVIDERS: ADMIT Thoracic Surgery (Cardiothoracic Vascular Surgery); ATTEND Thoracic Surgery (Cardiothoracic Vascular Surgery)
PROC: 02100Z9 Bypass Coronary Artery, One Artery from Left Internal Mammary, Open Approach (ICD-10-PCS; principal; 2020-01-29)
PROC: 021009W Bypass Coronary Artery, One Artery from Aorta with Autologous Venous Tissue, Open Approach (ICD-10-PCS; 2020-01-29)
PROC: 06BQ0ZZ Excision of Left Saphenous Vein, Open Approach (ICD-10-PCS; 2020-01-29)
PROC: 5A1221Z Performance of Cardiac Output, Continuous (ICD-10-PCS; 2020-01-29)
PROC: 30233N1 Transfusion of Nonautologous Red Blood Cells into Peripheral Vein, Percutaneous Approach (ICD-10-PCS; 2020-01-30)
DX: I25.10 Atherosclerotic heart disease of native coronary artery without angina pectoris (principal); J44.9 Chronic obstructive pulmonary disease, unspecified; I50.9 Heart failure, unspecified; I11.0 Hypertensive heart disease with heart failure; E78.2 Mixed hyperlipidemia; D64.9 Anemia, unspecified; Z11.59 Encounter for screening for other viral diseases; Z79.82 Long term (current) use of aspirin; Z90.710 Acquired absence of both cervix and uterus; Z87.891 Personal history of nicotine dependence; Z95.5 Presence of coronary angioplasty implant and graft; I25.2 Old myocardial infarction; Z79.899 Other long term (current) drug therapy; Z79.02 Long term (current) use of antithrombotics/antiplatelets
CPT/HCPCS: 36415; 36416; 36430; 71045; 80048; 82805; 85025; 85027; 85610; 85730; 86850; 86900; 86901; 87635; 93005; 93010; 93798; J0690; J1100; J1642; J1644; J1815; J1885; J2001; J2250; J2405; J2440; J2704; J2720; J3010; J3370; J3475; J3480; P9016; P9045; S0017; S0028; U0003